=== PATIENT | male | born 1960 | race Two or more races ===

== ENCOUNTER 2020-11-10 19:19 | Emergency (ER) | payer OTHER ==
[~2020-11-10] VITALS: Ht 180.3 cm; Wt 88.9 kg
[2020-11-10] MEDS ORDERED: PROZAC40 MG (19:27)
[2020-11-11] MEDS ORDERED: ORPHENADRINE C100 MG PO (01:45)
[2020-11-11] MEDS ORDERED: KETO10TA2 PO (01:45)
== END 2020-11-11 01:58 | disposition home or self-care (01) ==
LOC: ER 19:19
DX: R10.84 Generalized abdominal pain (principal); H92.01 Otalgia, right ear; M43.16 Spondylolisthesis, lumbar region; M54.5 Low back pain